=== PATIENT | female | born 1990 | race Hispanic/Latino ===

== ENCOUNTER 2017-09-29 18:34 | Emergency (ER) | payer OTHER ==
--- NOTE | 2017-09-29 20:12 | CT ---
CT BRAIN WITHOUT CONTRAST: HISTORY: Head injury. Head and neck pain. FINDINGS: No evidence of infarct, hemorrhage, midline shift, or abnormal extraaxial fluid collections is seen. The ventricular size is normal, and the basilar cisterns are patent. The bony calvarium is intact. The visualized paranasal sinuses and mastoid air cells are well aerated. IMPRESSION: No CT evidence of acute intracranial process. POS: [facility]
--- NOTE | 2017-09-29 20:18 | CT ---
CT CERVICAL SPINE WITH CORONAL AND SAGITTAL REFORMATIONS: HISTORY: Head injury. Head and neck pain. FINDINGS: There is loss of cervical lordosis and mild reversal. No acute fracture or subluxation is seen. No facet malalignment is identified. POS: [facility]
== END 2017-09-29 20:13 | disposition home or self-care (01) ==
LOC: SCSER 18:34
DX: S16.1XXA Strain of muscle, fascia and tendon at neck level, initial encounter (principal); S00.93XA Contusion of unspecified part of head, initial encounter; F41.9 Anxiety disorder, unspecified; W20.8XXA Other cause of strike by thrown, projected or falling object, initial encounter
CPT/HCPCS: 70450; 72125

== ENCOUNTER 2018-08-06 20:19 | Emergency (ER) | payer OTHER, SELFPAY ==
--- NOTE | 2018-08-06 22:16 | RAD ---
Exam: XR Elbow Rt 4 View STANDARD HISTORY: Right elbow and forearm pain. COMPARISON: None FINDINGS: No acute fracture, dislocation, or other acute osseous abnormality is identified. IMPRESSION: No acute osseous abnormality is identified.
--- NOTE | 2018-08-06 22:17 | RAD ---
Exam: XR Forearm Rt 2 View STANDARD HISTORY: Right elbow and forearm pain. COMPARISON: None FINDINGS: No acute fracture, dislocation, or other acute osseous abnormality is identified. IMPRESSION: No acute osseous abnormality is identified.
== END 2018-08-06 22:56 | disposition home or self-care (01) ==
LOC: ERS 20:19
DX: L92.0 Granuloma annulare (principal); G56.21 Lesion of ulnar nerve, right upper limb; F41.9 Anxiety disorder, unspecified